=== PATIENT | female | born 1960 | race Two or more races ===

== ENCOUNTER 2016-09-18 12:45 | Emergency (ER) | payer OTHER ==
[2016-09-18 14:21] LABS: Basophils # (A) 0.1 k/uL (0-0.2); Basophils % (A) 1 %; CH 27.7; CHCM 33.2; Eosinophils # (A) 0.5 k/uL (0-0.7); Eosinophils % (A) 8 %; HCT 40.4 % (34.0-46.0); HDW 2.65; HGB 13.3 gm/dL (11.4-16.0); Luc # (Auto) 0.21; Luc % (Auto) 3; Lymphocytes # (A) 2.9 k/uL (1.0-4.8); Lymphocytes % (A) 45 %; MCH 27.5 pg (25.0-35.0); MCHC 32.9 g/dL (31.0-37.0); MCV 83.7 fL (80.0-100.0); Mean Platelet Volume 7.6; Monocytes # (A) 0.4 k/uL (0-1.0); Monocytes % (A) 6 %; Neutrophils # (A) 2.3 k/uL (1.3-7.7); Neutrophils % (A) 36 %; RBC 4.83 m/uL (3.80-5.40); RDW 13.4 % (11.5-15.5); WBC 6.5 k/uL (3.8-10.6); WBC (Perox) 6.53
[2016-09-18 14:34] LABS: Anion Gap 13 mmol/L; Blood Urea Nitrogen 14 mg/dL (7-17); Calcium 9.3 mg/dL (8.4-10.2); Carbon Dioxide 24 mmol/L (22-30); Chloride 104 mmol/L (98-107); Glucose 100 mg/dL (74-99); Non-African American GFR(MDRD) >60 (>60 ml/min/1.73 sqM); Potassium 4.7 mmol/L (3.5-5.1); Sodium 141 mmol/L (137-145)
--- NOTE | 2016-09-18 15:12 | XR ---
EXAMINATION TYPE: XR chest 2V DATE OF EXAM: 09/18/2016 2:44 PM COMPARISON: NONE INDICATION: Pain TECHNIQUE: Single frontal view of the chest is obtained. FINDINGS: The heart size is normal. The pulmonary vasculature is normal. The lungs are clear. IMPRESSION: 1. No acute pulmonary process.
--- NOTE | 2016-09-18 15:13 | XR ---
EXAMINATION TYPE: XR wrist complete RT DATE OF EXAM: 09/18/2016 2:44 PM COMPARISON: NONE HISTORY: Pain TECHNIQUE: 3 view right wrist FINDINGS: No acute fractures are evident. Soft tissues are normal. Catheters on the dorsum of the dumont d. Joint spaces are preserved. IMPRESSION: 1. Unremarkable 3 view right wrist
--- NOTE | 2016-09-18 15:14 | XR ---
EXAMINATION TYPE: XR knee limited LT DATE OF EXAM: 09/18/2016 2:44 PM COMPARISON: NONE HISTORY: Pain TECHNIQUE: 3 view left knee FINDINGS: There may be some diffuse soft tissue swelling over the patella. No significant joint effus ion is evident. Mild narrowing of the medial compartment joint space is present. Minimal narrowing of the lateral compartment joint space is present. Medial femoral condylar spurring and medial tibial p lateau spurring is present. IMPRESSION: 1. Mild osteoarthritic degenerative change. 2. Superficial soft tissue swelling
--- NOTE | 2016-09-18 15:38 | ED ---
General Adult HPI - General Chief complaint: ENT Stated complaint: Chest/arm pain Time Seen by Provider: 09/18/16 13:04 Source: patient, family, RN notes reviewed, old records reviewed Mode of arrival: wheelchair Limitations: no limitations - History of Present Illness Initial comments: 56-year-old female presenting for multiple complaints. Patient only speaks Spanish, her nephew is interpreting for her. Patient and nephew were offered an triage register nurse, but they declined. The patient would like nephew interpret for her. She states that she has been having a sore throat for the past 2 days. She states she's had some nonproductive cough as well. She denies any chest pain or shortness of breath. She also states that she has had pain at the base of her right thumb for the past month. She is also had left knee pain for the past several months. She denies any lower extremity swelling. She denies any fevers or chills. She denies any abdominal pain or nausea or vomiting. - Related Data Previous Rx's Medication Instructions Recorded Acetaminophen-Codeine 300-30mg 1 tab PO Q6H PRN #16 tablet 09/18/16 [Tylenol #3] Ibuprofen [Motrin] 600 mg PO Q6HR PRN #24 tab 09/18/16 Allergies Allergy/AdvReac Type Severity Reaction Status Date / Time No Known Allergies Allergy Unverified 09/18/16 14:52 Review of Systems ROS Statement: Those systems with pertinent positive or pertinent negative responses have been documented in the HPI. ROS Other: All systems not noted in ROS Statement are negative. Past Medical History Past Medical History: Hyperlipidemia History of Any Multi-Drug Resistant Organisms: None Reported Past Surgical History: Orthopedic Surgery Past Psychological History: No Psychological Hx Reported Smoking Status: Never smoker Past Alcohol Use History: None Reported Past Drug Use History: None Reported General Exam - General Exam Comments Initial Comments: General: Awake and Alert. No acute distress. Does not appear acutely ill. Eyes: ASHWIN, EOM intact. No nystagmus. No scleral icterus. HENT: Atraumatic, normocephalic. Mucous membranes moist. Trachea midline. There is no posterior pharyngeal edema or erythema. Neck: The neck is supple, there is no tenderness or JVD. Cardiovascular: Regular rate and rhythm. No murmur, rub, or gallop is appreciated. Distal pulses intact. Respiratory: Lungs are clear to auscultation bilaterally. No wheezes, rales, rhonchi. No respiratory distress. Gastrointestinal: Soft, Nontender. No rebound or guarding. Non-distended. No masses or organomegaly noted. No CVA tenderness. Musculoskeletal: Tenderness at the base of the right thumb. There is also pain with passive and active range of motion. She does have range of motion intact however. Left knee with mild prepatellar tenderness and mild effusion however range of motion is fully intact. She does not have pain with range of motion. Remainder of MSK exam with no tenderness. Normal ROM. No gross deformity. No strength deficits. Neurological: A&Ox3. CN II-XII grossly intact, There are no obvious motor or sensory deficits. Coordination appears grossly intact. Speech is normal. Skin: Skin is warm and dry and no rashes or lesions are noted. Psychiatric: Cooperative, appropriate mood & affect, normal judgment. Limitations: no limitations Course Vital Signs 09/18/16 09/18/16 12:51 16:00 Temperature 97.5 F L 97.0 F L Pulse Rate 70 66 Respiratory 20 16 Rate Blood Pressure 97/61 112/55 O2 Sat by Pulse 97 96 Oximetry Medical Decision Making - Medical Decision Making 56-year-old female presenting for sore throat as well as right thumb and left knee pain. Initial vitals are stable, afebrile. Patient does not appear to be in acute distress at this time. She denies any chest pain or shortness of breath associated. Per discussion, her knee and some pain has been relatively chronic issue. Had long discussion with patient and nephew about results and imaging. Discussed clear CXR. Discussed evidence of arthritis in knee. Discussed likely chronic nature of right thumb and left knee pain. Discussed close follow-up with PCP for further treatment of this. Recommend NSAID therapy as well as Rx for Tylenol threes for any worsening pain. Discussed orthopedic follow-up if pain persists. Were given orthopedic follow-up information. Discussed likely viral syndrome of sore throat and symptomatically treatment for this with throat lozenges. Strep and influenza were negative. Labwork grossly unremarkable. Patient was offered pain medication but declined on initial exam as well as on reevaluation. Discussed concerning signs symptoms for immediate return to the ED. Patient and family are agreeable with plan and discharge home. - Lab Data Result diagrams: 09/18/16 14:10 09/18/16 14:10 Lab Results 09/18/16 09/18/16 09/18/16 Range/Units 14:10 14:10 14:10 WBC 6.5 (3.8-10.6) k/uL RBC 4.83 (3.80-5.40) m/uL Hgb 13.3 (11.4-16.0) gm/dL Hct 40.4 (34.0-46.0) % MCV 83.7 (80.0-100.0) fL MCH 27.5 (25.0-35.0) pg MCHC 32.9 (31.0-37.0) g/dL RDW 13.4 (11.5-15.5) % Plt Count 290 (150-450) k/uL Neutrophils % 36 % Lymphocytes % 45 % Monocytes % 6 % Eosinophils % 8 % Basophils % 1 % Neutrophils # 2.3 (1.3-7.7) k/uL Lymphocytes # 2.9 (1.0-4.8) k/uL Monocytes # 0.4 (0-1.0) k/uL Eosinophils # 0.5 (0-0.7) k/uL Basophils # 0.1 (0-0.2) k/uL Sodium 141 (137-145) mmol/L Potassium 4.7 (3.5-5.1) mmol/L Chloride 104 (98-107) mmol/L Carbon Dioxide 24 (22-30) mmol/L Anion Gap 13 mmol/L BUN 14 (7-17) mg/dL Creatinine 0.57 (0.52-1.04) mg/dL Est GFR (MDRD) Af Amer >60 (>60 ml/min/1.73 sqM) Est GFR (MDRD) Non-Af >60 (>60 ml/min/1.73 sqM) Glucose 100 H (74-99) mg/dL Calcium 9.3 (8.4-10.2) mg/dL Influenza Type A RNA Not Detected (Not Detectd) Influenza Type B (PCR) Not Detected (Not Detectd) Group A Strep Rapid (Negative) 09/18/16 Range/Units 14:10 WBC (3.8-10.6) k/uL RBC (3.80-5.40) m/uL Hgb (11.4-16.0) gm/dL Hct (34.0-46.0) % MCV (80.0-100.0) fL MCH (25.0-35.0) pg MCHC (31.0-37.0) g/dL RDW (11.5-15.5) % Plt Count (150-450) k/uL Neutrophils % % Lymphocytes % % Monocytes % % Eosinophils % % Basophils % % Neutrophils # (1.3-7.7) k/uL Lymphocytes # (1.0-4.8) k/uL Monocytes # (0-1.0) k/uL Eosinophils # (0-0.7) k/uL Basophils # (0-0.2) k/uL Sodium (137-145) mmol/L Potassium (3.5-5.1) mmol/L Chloride (98-107) mmol/L Carbon Dioxide (22-30) mmol/L Anion Gap mmol/L BUN (7-17) mg/dL Creatinine (0.52-1.04) mg/dL Est GFR (MDRD) Af Amer (>60 ml/min/1.73 sqM) Est GFR (MDRD) Non-Af (>60 ml/min/1.73 sqM) Glucose (74-99) mg/dL Calcium (8.4-10.2) mg/dL Influenza Type A RNA (Not Detectd) Influenza Type B (PCR) (Not Detectd) Group A Strep Rapid Negative (Negative) - Radiology Data Radiology results: report reviewed, image reviewed Disposition Clinical Impression: Sore throat, Pain of right thumb, Left knee pain, Arthritis Disposition: HOME SELF-CARE Condition: Stable Instructions: Pharyngitis (ED), Osteoarthritis (ED), Knee Pain (ED) Additional Instructions: Please use over the counter throat lozenges or gargle salt water for sore throat relief. Please follow up closely with her primary care doctor. Please follow up with Orthopedic Surgery regarding her thumb and knee pain. Prescriptions: Acetaminophen-Codeine 300-30mg [Tylenol #3] 1 tab PO Q6H PRN #16 tablet PRN Reason: Severe Pain Ibuprofen [Motrin] 600 mg PO Q6HR PRN #24 tab PRN Reason: Mild To Moderate Pain Referrals: Jose Angel Bailey MD [Primary Care Provider] - 1-2 days Jose Cramer DO [Doctor of Osteopathic Medicine] - 1-2 days Time of Disposition: 15:37
[2016-09-18 16:03] VITALS: BP 112/55; PULSE 66; RESP 16; TEMP 97
== END 2016-09-18 16:03 | disposition home or self-care (01) ==
LOC: EC 12:45
DX: J02.9 Acute pharyngitis, unspecified (principal); M79.644 Pain in right finger(s); M17.12 Unilateral primary osteoarthritis, left knee; R05 Cough
CPT/HCPCS: 36415; 71020; 80048; 85025; 87081; 87430; 87502; 99285

== ENCOUNTER 2016-10-11 12:21 | Emergency (ER) | payer OTHER ==
[2016-10-11] MEDS ORDERED: SODIUM CHLORIDE 0.9% 1,000 ML IV STA ×2 (14:32)
--- NOTE | 2016-10-11 14:41 | ED ---
General Adult HPI - General Chief complaint: Nausea/Vomiting/Diarrhea Stated complaint: Abd/Leg Pain Time Seen by Provider: 10/11/16 14:21 Source: patient, family, subassembly supervisor, RN notes reviewed Mode of arrival: wheelchair Limitations: language barrier - History of Present Illness Initial comments: Patient's a 26-year-old female who presents emergency room today with a chief complaint of diarrhea. States symptoms started 3 days ago. History difficult to obtain due to language barrier. [employer] is used. States symptoms started 3 days ago. Does admit to pain in her lower abdomen. Denies any signs of blood in the stool. Denies any nausea vomiting. Patient denies any recent fever, chills, shortness of breath, chest pain, back pain, abdominal pain, nausea or vomiting, numbness or tingling, dysuria or hematuria, constipation or diarrhea, headaches or visual changes, or any other complaints. - Related Data Previous Rx's Medication Instructions Recorded Dicyclomine [Bentyl] 20 mg PO QID #15 tablet 10/11/16 Ondansetron Odt [Zofran ODT] 4 mg PO Q8HR PRN #20 tab 10/11/16 Allergies Allergy/AdvReac Type Severity Reaction Status Date / Time No Known Allergies Allergy Verified 10/11/16 15:40 Review of Systems ROS Statement: Those systems with pertinent positive or pertinent negative responses have been documented in the HPI. ROS Other: All systems not noted in ROS Statement are negative. Past Medical History Past Medical History: Hyperlipidemia History of Any Multi-Drug Resistant Organisms: None Reported Past Surgical History: Orthopedic Surgery Past Psychological History: No Psychological Hx Reported Smoking Status: Never smoker Past Alcohol Use History: None Reported Past Drug Use History: None Reported General Exam - General Exam Comments Initial Comments: General: The patient is awake and alert, in no distress, and does not appear acutely ill. Eye: Pupils are equal, round and reactive to light, extra-ocular movements are intact. No nystagmus. There is normal conjunctiva bilaterally. No signs of icterus. Ears, nose, mouth and throat: There are moist mucous membranes and no oral lesions. Neck: The neck is supple, there is no tenderness or JVD. Cardiovascular: There is a regular rate and rhythm. No murmur, rub or gallop is appreciated. Respiratory: Lungs are clear to auscultation, respirations are non-labored, breath sounds are equal. No wheezes, stridor, rales, or rhonchi. Gastrointestinal: Normal bowel sounds. Abdomen soft on palpation. Does have tenderness midline and right lower quadrant. No rebound tenderness. No guarding. No rebound. No CVA tenderness. Musculoskeletal: Normal ROM, no tenderness. Strength 5/5. Sensation intact. Pulses equal bilaterally 2+. Neurological: A&O x 3. CN II-XII intact, There are no obvious motor or sensory deficits. Coordination appears grossly intact. Speech is normal. Skin: Skin is warm and dry and no rashes or lesions are noted. Psychiatric: Cooperative, appropriate mood & affect, normal judgment. Limitations: language barrier Course Vital Signs 10/11/16 13:21 Temperature 97.9 F Pulse Rate 79 Respiratory 18 Rate Blood Pressure 114/58 O2 Sat by Pulse 96 Oximetry Medical Decision Making - Medical Decision Making Patient's labs been reviewed are unremarkable. CT of the abdomen was performed revealing no acute abnormalities. Patient will be treated for symptoms of diarrhea placed on Bentyl. Also given nausea medication go home with. Advised following up with family doctor or return here to emergency room if any symptoms increase or worsen. Patient states understanding. - Lab Data Result diagrams: 10/11/16 14:55 10/11/16 14:55 Lab Results 10/11/16 10/11/16 10/11/16 Range/Units 14:55 14:55 14:55 WBC 8.4 (3.8-10.6) k/uL RBC 5.16 (3.80-5.40) m/uL Hgb 14.2 (11.4-16.0) gm/dL Hct 43.7 (34.0-46.0) % MCV 84.6 (80.0-100.0) fL MCH 27.5 (25.0-35.0) pg MCHC 32.5 (31.0-37.0) g/dL RDW 13.4 (11.5-15.5) % Plt Count 336 (150-450) k/uL Neutrophils % 32 % Lymphocytes % 50 % Monocytes % 6 % Eosinophils % 6 % Basophils % 1 % Neutrophils # 2.7 (1.3-7.7) k/uL Lymphocytes # 4.2 (1.0-4.8) k/uL Monocytes # 0.5 (0-1.0) k/uL Eosinophils # 0.5 (0-0.7) k/uL Basophils # 0.1 (0-0.2) k/uL Sodium 142 (137-145) mmol/L Potassium 5.0 (3.5-5.1) mmol/L Chloride 104 (98-107) mmol/L Carbon Dioxide 24 (22-30) mmol/L Anion Gap 14 mmol/L BUN 12 (7-17) mg/dL Creatinine 0.60 (0.52-1.04) mg/dL Est GFR (MDRD) Af Amer >60 (>60 ml/min/1.73 sqM) Est GFR (MDRD) Non-Af >60 (>60 ml/min/1.73 sqM) Glucose 104 H (74-99) mg/dL Calcium 9.4 (8.4-10.2) mg/dL Total Bilirubin 0.5 (0.2-1.3) mg/dL AST 24 (14-36) U/L ALT 32 (9-52) U/L Alkaline Phosphatase 54 (38-126) U/L Total Protein 8.0 (6.3-8.2) g/dL Albumin 4.4 (3.5-5.0) g/dL Amylase 104 (30-110) U/L Lipase 127 (23-300) U/L Urine Color Yellow Urine Appearance Clear (Clear) Urine pH 7.0 (5.0-8.0) Ur Specific [place] 1.012 (1.001-1.035) Urine Protein Negative (Negative) Urine Glucose (UA) Negative (Negative) Urine Ketones Negative (Negative) Urine Blood Negative (Negative) Urine Nitrite Negative (Negative) Urine Bilirubin Negative (Negative) Urine Urobilinogen <2.0 (<2.0) mg/dL Ur Leukocyte Esterase Negative (Negative) Disposition Clinical Impression: Acute diarrhea Disposition: HOME SELF-CARE Condition: Good Instructions: Acute Diarrhea (ED) Additional Instructions: Please use medication as prescribed. Please follow-up family doctor over the next 2 days or return here to the emergency room if any symptoms increase or worsen or for any other concerns. Prescriptions: Dicyclomine [Bentyl] 20 mg PO QID #15 tablet Ondansetron Odt [Zofran ODT] 4 mg PO Q8HR PRN #20 tab PRN Reason: Nausea Referrals: None,Stated [Primary Care Provider] - 1-2 days Sandra Corbin MD [REFERRING] - 1-2 days Time of Disposition: 16:46
--- NOTE | 2016-10-11 15:12 | XR ---
EXAMINATION TYPE: XR KUB DATE OF EXAM: 10/11/2016 3:08 PM CLINICAL HISTORY: Abdominal pain and diarrhea for 3 days. TECHNIQUE: 2 upright KUB images of the abdomen are obtained. COMPARISON: None. FINDINGS: Scattered gas is seen in non-distended stomach and small bowel loops. Gas and fecal mater ial is seen in non-distended colon and rectum. There is no visceromegaly, pneumoperitoneum, or abno rmal calcification appreciated. The lung bases are clear and the osseous structures are intact. IMPRESSION: Overall nonobstructive bowel gas pattern.
[2016-10-11] MEDS ORDERED: RX INFO: IV CONTRAST WAS GIVEN 1 EACH MISC MISCELLANE PRN (15:23)
[2016-10-11] MEDS ORDERED: HYDROmorphone 1 MG/ML 1 ML SYRINGE IVP STA (15:44)
[2016-10-11 15:51] LABS: Aty Lym Flag Slight; Basophils # (A) 0.1 k/uL (0-0.2); Basophils % (A) 1 %; CH 27.2; CHCM 32.3; Eosinophils # (A) 0.5 k/uL (0-0.7); Eosinophils % (A) 6 %; HCT 43.7 % (34.0-46.0); HGB 14.2 gm/dL (11.4-16.0); Luc # (Auto) 0.39; Luc % (Auto) 5; Lymphocytes # (A) 4.2 k/uL (1.0-4.8); Lymphocytes % (A) 50 %; MCH 27.5 pg (25.0-35.0); MCHC 32.5 g/dL (31.0-37.0); MCV 84.6 fL (80.0-100.0); Mean Platelet Volume 7.3; Monocytes # (A) 0.5 k/uL (0-1.0); Monocytes % (A) 6 %; Neutrophils # (A) 2.7 k/uL (1.3-7.7); Neutrophils % (A) 32 %; RBC 5.16 m/uL (3.80-5.40); RDW 13.4 % (11.5-15.5); WBC 8.4 k/uL (3.8-10.6); WBC (Perox) 8.64
[2016-10-11 15:55] LABS: Appearance,Urine Clear (Clear); Bilirubin,Urine Negative (Negative); Glucose,Urine (UA) Negative (Negative); Ketones,Urine Negative (Negative); Leukocyte Esterase,Urine Negative (Negative); Nitrite,Urine Negative (Negative); Protein,Urine Negative (Negative); Specific Gravity,Urine 1.012 (1.001-1.035); UA Billing (MACRO vs. MICRO) CHEM; Urobilinogen,Urine <2.0 mg/dL (<2.0)
[2016-10-11 16:04] LABS: ALT 32 U/L (9-52); AST 24 U/L (14-36); Alkaline Phosphatase 54 U/L (38-126); Amylase 104 U/L (30-110); Anion Gap 14 mmol/L; Blood Urea Nitrogen 12 mg/dL (7-17); Calcium 9.4 mg/dL (8.4-10.2); Carbon Dioxide 24 mmol/L (22-30); Chloride 104 mmol/L (98-107); Glucose 104 mg/dL (74-99); Non-African American GFR(MDRD) >60 (>60 ml/min/1.73 sqM); Sodium 142 mmol/L (137-145); Total Bilirubin 0.5 mg/dL (0.2-1.3)
--- NOTE | 2016-10-11 16:30 | CT ---
EXAMINATION TYPE: CT abdomen pelvis w con DATE OF EXAM: 10/11/2016 4:11 PM HISTORY: Abd pain and diarrhea x3 days. CT DLP: 1101.mGycm Automated Exposure Control for Dose Reduction was Utilized. CONTRAST: CT scan of the abdomen and pelvis is performed with IV Contrast, patient injected with 100 mL of Omni paque 300. COMPARISON: None. FINDINGS: LUNG BASES: No significant abnormality is appreciated. LIVER/GB: No significant abnormality is appreciated. PANCREAS: No significant abnormality is seen. SPLEEN: No significant abnormality is seen. ADRENALS: No significant abnormality is seen. KIDNEYS: A retroaortic left renal vein is seen which is normal variant. BOWEL: Evaluation bowel is suboptimal due to lack of enteric contrast. There is no suspicious small o r large bowel dilatation seen. Normal-appearing appendix is seen from the cecum. UTERUS/ADNEXA: No gross abnormality seen. LYMPH NODES: No greater than 1cm abdominal or pelvic lymph nodes are appreciated. OSSEOUS STRUCTURES: No significant abnormality is seen. OTHER: No significant additional abnormality is seen. IMPRESSION: No significant acute finding is seen to account for patient's clinical symptoms. No bowel obstruction is noted.
[2016-10-11 17:05] VITALS: BP 108/63; PULSE 84; RESP 16; TEMP 97.4
== END 2016-10-11 17:03 | disposition home or self-care (01) ==
LOC: SUPCPDRO 12:21 → EC 12:21
DX: R19.7 Diarrhea, unspecified (principal); R10.31 Right lower quadrant pain; R11.0 Nausea
CPT/HCPCS: 99284 ×2; 96374 ×2; 96361 ×3; 36415; 80053; 82150; 83690; 85025; 81003; 74000; 74177; J1170; Q9967